=== PATIENT | female | born 1975 | race Hispanic/Latino ===

== ENCOUNTER 2019-11-15 13:16 | Emergency (ER) | payer OTHER ==
[2019-11-15] MEDS ORDERED: ACETAMINOPHEN EXTRA STRENGTH 500 MG TABLET ONE (15:11)
[2019-11-15 15:46] LABS: BASOPHILS % (AUTO) 0.3 % (0.0-5.0); EOSINOPHILS % (AUTO) 2.7 % (0.0-8.0); HEMATOCRIT 41.2 % (36-48); LYMPHOCYTES % (AUTO) 26.1 % (21.0-51.0); MEAN CORPUSCULAR HEMOGLOBIN 29.8 pg (27.0-33.0); MEAN CORPUSCULAR HGB CONC 33.3 g/dL (32.0-36.0); MEAN CORPUSCULAR VOLUME 89.6 fL (79-99); MONOCYTES % (AUTO) 4.8 % (3.0-13.0); NEUTROPHILS % (AUTO) 65.9 % (40.0-77.0); PLATELET COUNT (AUTO) 347 K/uL (130-400); RED CELL DISTRIBUTION WIDTH 13.8 % (11.0-15.5)
[2019-11-15 16:06] LABS: ALBUMIN 3.8 g/dL (3.5-5.0); BILIRUBIN,TOTAL 0.1 mg/dL (0.2-1.0); CREATININE 0.7 mg/dL (0.5-1.5); POTASSIUM 4.4 mmol/L (3.5-5.1); TOTAL PROTEIN, SERUM 7.4 g/dL (6.0-8.3)
[2019-11-15] MEDS ORDERED: METOCLOPRAMIDE 10 MG/2 ML VIAL ONE (16:16)
[2019-11-15] MEDS ORDERED: DiphenhydrAMINE HCL 50 MG/ML VIAL ONE (16:17)
[2019-11-15] MEDS ORDERED: ERGOCALCIFEROL (VITAMIN D2) 50,000 UNIT CAPSULE ONE (16:57)
[2019-11-15] MEDS ORDERED: DIAZEPAM 5 MG/ML 2 ML SYG ONE (17:29)
[2019-11-15] MEDS ORDERED: IOHEXOL-350 75 ML VIAL IV ONE (17:29)
== END 2019-11-15 19:59 | disposition home or self-care (01) ==
LOC: EDH 13:16
DX: R51 Headache (principal); Z20.828 Contact with and (suspected) exposure to other viral communicable diseases; Z72.0 Tobacco use
CPT/HCPCS: 36415; 70450; 70496; 70498; 71045; 80053; 82550; 84484; 85025; 87426; 93005; 96361; 96374; 96375; 99285; J1200; J2765; J3360; Q9967; U0003

== ENCOUNTER 2020-05-17 11:21 | Emergency (ER) | payer OTHER ==
[2020-05-17] MEDS ORDERED: MORPHINE SULFATE 2 MG/ML 1ML SYG ONE (11:56)
[2020-05-17] MEDS ORDERED: KETOROLAC TROMETHAMINE 60 MG/2 ML VIAL ONE (14:50)
== END 2020-05-17 16:29 | disposition home or self-care (01) ==
LOC: EDH 11:21
DX: S86.911A Strain of unspecified muscle(s) and tendon(s) at lower leg level, right leg, initial encounter (principal); Z72.0 Tobacco use; X58.XXXA Exposure to other specified factors, initial encounter; Y93.89 Activity, other specified; Y92.89 Other specified places as the place of occurrence of the external cause; Y99.8 Other external cause status
CPT/HCPCS: 29505; 73562; 76882; 82948; 96372 ×2; 99284; J1885

== ENCOUNTER 2020-08-14 17:17 | Emergency (ER) | payer OTHER ==
[~2020-08-14] VITALS: Ht 175.3 cm; Wt 79.4 kg
[2020-08-14 17:23] VITALS: BP 140/73
[2020-08-14 17:29] VITALS: BP 122/69
[2020-08-14 17:43] LABS: BASOPHILS % (AUTO) 0.4 % (0.0-5.0); EOSINOPHILS % (AUTO) 3.2 % (0.0-8.0); HEMATOCRIT 40.2 % (36-48); MEAN CORPUSCULAR HEMOGLOBIN 29.9 pg (27.0-33.0); MEAN CORPUSCULAR HGB CONC 32.6 g/dL (32.0-36.0); MEAN CORPUSCULAR VOLUME 91.8 fL (79-99); MONOCYTES % (AUTO) 5.6 % (3.0-13.0); NEUTROPHILS % (AUTO) 56.5 % (40.0-77.0); PLATELET COUNT (AUTO) 371 K/uL (130-400); RED BLOOD CELL COUNT(AUTO) 4.38 MIL/uL (4.00-5.50); RED CELL DISTRIBUTION WIDTH 13.2 % (11.0-15.5); WHITE BLOOD COUNT (AUTO) 9.7 K/uL (4.8-10.8)
[2020-08-14 17:52] LABS: CARBON DIOXIDE 29 mmol/L (21-32); CHLORIDE 106 mmol/L (101-111); CREATININE 0.8 mg/dL (0.5-1.5); GLOMERULAR FILTR. RATE CALC 82 mL/min (>60); GLUCOSE,RANDOM 119 mg/dL (70-105); POTASSIUM 3.7 mmol/L (3.5-5.1); SODIUM SERUM 143 mmol/L (136-145); UREA NITROGEN, BLOOD 18 mg/dL (7-18)
[2020-08-14 17:54] LABS: INR 0.95 (0.85-1.15); PROTHROMBIN TIME 10.4 SEC (9.6-11.6)
[2020-08-14 18:02] LABS: ALANINE AMINOTRANSFERASE 31 U/L (12-78); ALBUMIN 3.5 g/dL (3.5-5.0); ASPARTATE AMINOTRANSFERASE 17 U/L (10-37); BILIRUBIN,TOTAL 0.1 mg/dL (0.2-1.0); CREATINE KINASE, TOTAL 69 U/L (21-232); MYOGLOBIN 17 ng/mL (10-92); TOTAL PROTEIN, SERUM 6.9 g/dL (6.0-8.3); TROPONIN I < 0.04 ng/mL (0.00-0.06)
[2020-08-14 18:37] VITALS: BP 128/73
[2020-08-14 20:27] VITALS: BP 129/66
== END 2020-08-14 20:30 | disposition home or self-care (01) ==
LOC: EDH 17:17
DX: R07.9 Chest pain, unspecified (principal); R20.0 Anesthesia of skin; E66.9 Obesity, unspecified
CPT/HCPCS: 36415; 71045; 80053; 82550; 83874; 84484; 85025; 85610; 93005

== ENCOUNTER 2021-02-08 17:07 | Emergency (ER) | payer OTHER ==
[~2021-02-08] VITALS: Ht 175.3 cm; Wt 86.2 kg
[2021-02-08 17:09] VITALS: BP 120/72
== END 2021-02-08 17:25 | disposition left against medical advice (07) ==
LOC: EDH 17:07
DX: R51.9 Headache, unspecified (principal); Z53.21 Procedure and treatment not carried out due to patient leaving prior to being seen by health care provider

== ENCOUNTER 2022-06-27 10:36 | Emergency (ER) | payer OTHER ==
[~2022-06-27] VITALS: Ht 175.3 cm; Wt 87.1 kg
[2022-06-27 10:37] VITALS: BP 125/63
[2022-06-27] MEDS ORDERED: KETOROLAC 60 MG VIAL (30MG/ML) IM ONE (11:00)
[2022-06-27 11:22] LABS: APPEARANCE,URINE CLEAR (CLEAR); BILIRUBIN,URINE NEGATIVE (NEGATIVE); COLOR,URINE LIGHT-YELLOW (YELLOW); GLUCOSE, URINE (UA) NEGATIVE (NEGATIVE); KETONES,URINE NEGATIVE (NEGATIVE); LEUKOCYTE ESTERASE ,URINE NEGATIVE Leu/uL (NEGATIVE); NITRATE,URINE NEGATIVE (NEGATIVE); OCCULT BLOOD,URINE NEGATIVE (NEGATIVE); PH,URINE 5.5 (5.0-8.0); PROTEIN,URINE NEGATIVE (NEGATIVE)
[2022-06-27] MEDS ORDERED: ALBUTEROL 0.083% 2.5 MG/3 ML INH IH ONE (11:30)
[2022-06-27] MEDS ORDERED: IBUP-2071 PO (11:32)
[2022-06-27] MEDS ORDERED: OXYC-38 PO (11:32)
[2022-06-27] MEDS ORDERED: CYCL10TA16 PO (11:32)
[2022-06-27] MEDS ORDERED: ALBUHFA IH (11:33)
[2022-06-27] MEDS ORDERED: OXYCODONE/ACETAMIN 5/325MG TAB PO ONE (12:00)
[2022-06-27 12:18] LABS: BACTERIA,URINE FEW /HPF (None Seen); MUCUS,URINE RARE LPF (None Seen); RBC,URINE 0-1 /HPF (0-1); SQUAMOUS EPITHELIAL CELL,UR RARE /HPF (0-2); WBC,URINE 0-1 /HPF (0-1)
== END 2022-06-27 12:03 | disposition home or self-care (01) ==
LOC: EDH 10:36
DX: J98.01 Acute bronchospasm (principal); M54.31 Sciatica, right side; M54.12 Radiculopathy, cervical region; Z98.890 Other specified postprocedural states
CPT/HCPCS: 99284; 81001; 96372; 94640; J1885

== ENCOUNTER 2022-09-18 20:44 | Emergency (ER) | payer OTHER ==
[~2022-09-18] VITALS: Ht 175.3 cm; Wt 866.4 kg
[~2022-09-18 20:44] MED LIST: ALBUHFA IH; CYCL10TA16 PO; IBUP-2071 PO; OXYC-38 PO
[2022-09-18 21:12] LABS: BASOPHILS % (AUTO) 0.6 % (0.0-5.0); EOSINOPHILS % (AUTO) 2.8 % (0.0-8.0); HEMATOCRIT 34.5 % (36-48); LYMPHOCYTES % (AUTO) 39.2 % (21.0-51.0); MEAN CORPUSCULAR HEMOGLOBIN 30.8 pg (27.0-33.0); MEAN CORPUSCULAR HGB CONC 33.9 g/dL (32.0-36.0); MEAN CORPUSCULAR VOLUME 90.8 fL (79-99); MONOCYTES % (AUTO) 4.8 % (3.0-13.0); NEUTROPHILS % (AUTO) 52.3 % (40.0-77.0); PLATELET COUNT (AUTO) 303 K/uL (130-400); RED CELL DISTRIBUTION WIDTH 13.6 % (11.0-15.5); WHITE BLOOD COUNT (AUTO) 9.9 K/uL (4.8-10.8)
[2022-09-18 21:25] LABS: CREATININE 0.8 mg/dL (0.5-1.5); POTASSIUM 3.6 mmol/L (3.5-5.1)
[2022-09-18 21:29] LABS: ALBUMIN 3.3 g/dL (3.5-5.0); TOTAL PROTEIN, SERUM 6.2 g/dL (6.0-8.3)
[2022-09-18 21:30] LABS: INR 0.93 (0.85-1.15); PROTHROMBIN TIME 10.4 SEC (9.6-11.6)
[2022-09-18 21:31] LABS: PARTIAL THROMBOPLASTIN TIME 25.9 SEC (26.3-35.5)
[2022-09-18] MEDS ORDERED: KETOROLAC 30MG VIAL (30MG/ML) IM ONE (22:00)
[2022-09-18] MEDS ORDERED: DIPH,PERTUSS(ACELL),TET VAC/PF 0.5 ML VIAL IM ONE (22:00)
[2022-09-18] MEDS ORDERED: TETANUS/DIPHTHERIA TOXOID [ADULT] 0.5 ML VIAL IM ONE ×2 (22:26→22:30)
[2022-09-19] MEDS ORDERED: IBUP-1493 PO (00:30)
[2022-09-19] MEDS ORDERED: CYCL-309 PO (00:30)
[2022-09-19] MEDS ORDERED: MUPI15C TP (00:31)
[2022-09-19 00:33] VITALS: BP 118/54
== END 2022-09-19 00:58 | disposition home or self-care (01) ==
LOC: EDH 20:44
DX: S20.212A Contusion of left front wall of thorax, initial encounter (principal); S80.812A Abrasion, left lower leg, initial encounter; M54.31 Sciatica, right side; Z79.899 Other long term (current) drug therapy; Z98.890 Other specified postprocedural states; W01.0XXA Fall on same level from slipping, tripping and stumbling without subsequent striking against object, initial encounter; Y93.89 Activity, other specified; Y92.89 Other specified places as the place of occurrence of the external cause; Y99.8 Other external cause status
CPT/HCPCS: 99285; 71045; 84484; 80053; 85025; 85610; 85730; 36415; 90714; 96372; 90471; 93005; J1885

== ENCOUNTER 2023-07-31 18:48 | Emergency (ER) | payer OTHER ==
[~2023-07-31] VITALS: Ht 175.3 cm; Wt 79.4 kg
[~2023-07-31 18:48] MED LIST changes: +CYCL-309 PO; -CYCL10TA16 PO; +IBUP-1493 PO; -IBUP-2071 PO; +MUPI15C TP; -OXYC-38 PO
[2023-07-31] MEDS ORDERED: KETO10TA2 PO (20:56)
[2023-07-31 21:12] VITALS: BP 140/74; PULSE 74; RESP 14; O2SAT 98
[2023-07-31] MEDS: KETOROLAC 10 MG TABLET PO SCH (21:12)
== END 2023-07-31 21:23 | disposition home or self-care (01) ==
LOC: EDH 18:48
DX: S86.811A Strain of other muscle(s) and tendon(s) at lower leg level, right leg, initial encounter (principal); Z79.899 Other long term (current) drug therapy; Z98.890 Other specified postprocedural states; X50.1XXA Overexertion from prolonged static or awkward postures, initial encounter; Y93.01 Activity, walking, marching and hiking; Y92.89 Other specified places as the place of occurrence of the external cause; Y99.8 Other external cause status
CPT/HCPCS: 29505; 73564

== ENCOUNTER 2024-04-09 13:41 | Emergency (ER) | payer BC ==
[~2024-04-09] VITALS: Ht 170.2 cm; Wt 89.8 kg
[~2024-04-09 13:41] MED LIST changes: +KETO10TA2 PO
[2024-04-09 14:26] LABS: RAPID GROUP A STREP negative (NEGATIVE)
--- NOTE | 2024-04-09 14:26 | ERN ---
ED Note History of Present Illness Stated Complaint: FACE BREAKING OUT,MULTIPLE COMPLAINTS Chief Complaint: Cough Time Seen by MD: 13:45 Dictation: A 48-year-old female, who is an active smoker, presented to the emergency department today with a primary complaint of a skin breakouts over the face that began yesterday. She has recently commenced employment at a [employer], where several staff members have fallen ill with COVID-19, raising her concerns. Additionally, she reports experiencing body aches, headaches, a sore throat, cough without phlegm and intermittent chest congestion for approximately one month. The patient also describes reproducible chest pain, predominantly on the left side, radiating to her back, but denies experiencing nausea, vomiting, or dizziness. This morning, she noted a fever and took Tylenol for symptomatic relief. She has a history of gastroesophageal reflux disease (GERD) but has not been adhering to any medication regimen. The patient is experiencing some stress, as her father from a massive heart attack and her brothers due to cancer. She does not have a primary care provider outside of the clinic. Allergies: Coded Allergies: No Known Drug Allergies (Unverified Allergy, Unknown, 05/17/20) Home Meds Active Scripts Ketorolac Tromethamine (Ketorolac Tromethamine) 10 Mg Tablet, 10 MG PO BID for 5 Days, #10 TAB Prov:SEMAJ LONG 07/31/23 Mupirocin Calcium (Bactroban 2% Cream) 1 Appl/Gm Crm, 1 APPL TP TID, #60 APPL Prov:MICHELE WALKER MD 09/19/22 Ibuprofen (Motrin/Advil) 800 Mg Tab, 800 MG PO TID PRN for PAIN, #30 TAB Prov:MICHELE WALKER MD 09/19/22 Cyclobenzaprine HCl (Cyclobenzaprine HCl) 10 Mg Tablet, 10 MG PO TIDP PRN for PAIN, #30 TAB Prov:MICHELE WALKER MD 09/19/22 Albuterol Sulfate (Ventolin Hfa/Proventil Hfa/Proair Hfa) 90 Mcg/Puff Puff, 2 PUFF IH Q4H for Shortness of Breath, #1 INHALER 0 Refills Prov:DONY SIMONS MD 06/27/22 Past Medical History Past Medical History: Sciatica Additional Past Medical Hx: 4 chronic back pain with sciatica Surgical History: BTL Surgical History Other: TUBAL LIGATION Family History: Negative Social History: Smokers, ETOH, Negative, Other Review of System Dictation REVIEW OF SYSTEMS CONSTITUTIONAL: Complaints of fever, headaches, body aches Denies chills, or night sweats. No unintentional weight loss reported. NEUROLOGICAL: Denies headache, amaurosis fugax, motor weakness, sensory deficit, vertigo/spinning sensation, gait abnormalities, or tremors. ENT: No hearing loss, otalgia, otorrhea, rhinitis, rhinorrhea, hoarseness, or sore throat. CARDIOVASCULAR: Complaints of left-sided chest pain radiating to the back,Sharp shooting type. Denies any exertional angina, dyspnea on exertion, orthopnea, paroxysmal nocturnal dyspnea, palpitations, life-threatening arrhythmias, claudi cation. PULMONARY: Denies any shortness of breath, cough, phlegm/sputum, hemoptysis, pleuritic chest pain. SLEEP: Denies morning headaches, daytime somnolence or napping. Denies difficulty falling asleep, staying asleep, waking from sleep. Denies knowledge of snoring. GASTROINTESTINAL: Denies any type of dysphagia to either liquids or solids. Denies nausea, vomiting, pyrosis, early satiety, abdominal pain, diarrhea, constipation, or changes in stool consistency or caliber. Denies coffee-ground emesis, hematemesis, hematochezia, or melanotic stools. GENITOURINARY: Denies frequency, urgency, nocturia, hematuria or incontinence (Storage/Irritative symptoms.) Low urinary stream, straining to void, urinary intermittency or hesitancy, splitting of the voiding stream, terminal dribbling. ENDOCRINOLOGIC: Denies polyuria, polydipsia, polyphagia or heat/cold intolerances. HEMATOLOGIC: Denies thrombophilia/previous clots, or coagulopathy/bleeding disorders. ONCOLOGIC: Denies personal history of malignancy. DERMATOLOGIC: Complaints of skin breakouts over the face, Denies rashes or pru ritus. PSYCHIATRIC: Denies any suicidal or homicidal ideation. Denies hallucinations. Initial Vital Sign VS Vital Signs Date Time Temp Pulse Resp B/P (MAP) Pulse Ox O2 Delivery O2 Flow Rate FiO2 04/09/24 13:58 98.2 75 16 134/74 98 Room Air 0 04/09/24 18:02 21 Physical Exam Dictation PHYSICAL EXAM GENERAL APPEARANCE: The patient is awake, alert, and oriented, in no acute cardiopulmonary distress. NEUROLOGICAL: Cranial nerves II-XII grossly intact. Motor is 5/5 in bilateral upper and lower extremities proximal to distal. No sensory deficits. HEENT: Face is symmetric. Pupils are equal and reactive. Extraocular movements are intact. NECK: Supple. No JVD. No thyromegaly. No submental, submandibular, pre- /postauricular, occipital or supraclavicular lymphadenopathy. CHEST: Normal chest expansion. No Telemetry. LUNGS: Absence of any rales, rhonchi or any wheezing. CARDIOVASCULAR: Regular. S1 and S2 normal. No appreciable rubs, murmurs or gallops. ABDOMEN: Soft, nontender, and nondistended. There is no rebound, voluntary guarding, or rigidity. : Deferred. No Hill. EXTREMITIES: Non-edematous and not cyanotic. No clubbing. Good capillary refill. SKIN: Few skin breakouts were noted over the face. Results (Laboratory/Radiology) Laboratory/Radiology Laboratory Tests Test 04/09/24 14:06 04/09/24 15:11 Influenza Type A Antigen Negative For Type A Influenza Type B Antigen Negative For Type B SARS-CoV-2, RNA, NAAT NEGATIVE SARS CoV-2 Group A Streptococcus Rapid negative (NEGATIVE) White Blood Count 7.2 K/uL (4.8-10.8) Red Blood Count 4.69 MIL/uL (4.00-5.50) Hemoglobin 14.1 g/dL (12.0-16.0) Hematocrit 43.5 % (36-48) Mean Corpuscular Volume 92.8 fL (79-99) Mean Corpuscular Hemoglobin 30.1 pg (27.0-33.0) Mean Corpuscular Hemoglobin Concent 32.4 g/dL (32.0-36.0) Red Cell Distribution Width 13.5 % (11.0-15.5) Platelet Count 328 K/uL (130-400) Mean Platelet Volume 9.0 fL (7.5-10.5) Immature Granulocyte % (Auto) 0.3 % (0-1) Neutrophils (%) (Auto) 60.7 % (40.0-77.0) Lymphocytes (%) (Auto) 28.9 % (21.0-51.0) Monocytes (%) (Auto) 7.2 % (3.0-13.0) Eosinophils (%) (Auto) 2.5 % (0.0-8.0) Basophils (%) (Auto) 0.4 % (0.0-5.0) Neutrophils # (Auto) 4.4 K/uL (1.8-7.7) Lymphocytes # (Auto) 2.1 K/uL (1.0-4.8) Monocytes # (Auto) 0.5 K/uL (0.1-1.0) Eosinophils # (Auto) 0.18 K/uL (0.00-0.70) Basophils # (Auto) 0.03 K/uL (0.00-0.20) Absolute Immature Granulocyte (auto 0.02 K/uL (0-1) Nucleated Red Blood Cells 0.0 % (0.0-0.19) Sodium Level 142 mmol/L (136-145) Potassium Level 4.4 mmol/L (3.5-5.1) Chloride Level 106 mmol/L (101-111) Carbon Dioxide Level 31 mmol/L (21-32) Blood Urea Nitrogen 11 mg/dL (7-18) Creatinine 0.6 mg/dL (0.5-1.0) Glomerular Filtration Rate Calc 110 mL/min (>90) Random Glucose 91 mg/dL (70-105) Total Calcium 8.7 mg/dL (8.5-10.1) Troponin I High Sensitivity 5 ng/L (4-50) Labs Reviewed?: Yes EKG Comment: Sinus rhythm, normal P axis, V rate 50-99 W[place] 153 QT 421 QTcB 425 X-RAY Comment: [place] [id number] IMAGING REPORT Signed PATIENT: CAILIN MENCHACA MR#: [id number] : 1975 SEX: F AGE: 48 LOCATION: [facility] ORDER 44 STATUS: REG ER REPORT#: [id number] SERVICE 43 REASON: cp ORDERING PHYSICIAN: HUI TADEO MD PROCEDURE: CXR1VW - CHEST 1VW Exam Type: CHEST 1VW Clinical Information: cp Comparison: None Findings: The lungs are clear of infiltrates. The heart is normal in size. The bony and soft tissue structures of the chest are unremarkable. Impression: Clear lungs. DICTATED BY: MARGARITA MONTOYA MD DATE: 04/09/24 1517 ELECTRONICALLY SIGNED BY: MARGARITA MONTOYA MD DATE: 04/09/24 1520 ED Course ED Course Orders Procedure Category Date Status Time Covid Rna Naat LAB 04/09/24 Complete 14:02 Influenza Type A & B, LAB 04/09/24 Complete Rapid 14:02 Rapid (Group A Strep) LAB 04/09/24 Complete 14:02 12 Lead Ekg Tracing- EKG 04/09/24 Resulted Technical 14:44 Blood Cult JAKUB 04/09/24 In Process 14:44 Cbc With Differential LAB 04/09/24 Complete 14:44 Troponin I High LAB 04/09/24 Complete Sensitivity 14:44 Chest 1vw RAD 04/09/24 Resulted 14:44 Basic Metabolic Panel LAB 04/09/24 Complete 14:46 Vital Signs Date Time Temp Pulse Resp B/P (MAP) Pulse Ox O2 Delivery O2 Flow Rate FiO2 04/09/24 18:02 98.2 88 16 132/88 99 Room Air* 0 21 04/09/24 13:58 98.2 75 16 134/74 98 Room Air 0 14:20:The patient was assessed in the emergency department triage room 2. She appears to be in a comfortable state, although she expresses anxiety regarding the skin lesions on her face. She presents as pleasant and does not exhibit any signs of acute cardiopulmonary distress. Her hemodynamic status is stable. She reports reproducible chest pain on the left side. COVID, flu, strep tests have been negative. At this stage, we will exclude cardiac causes for the chest pain by performing an EKG, a cardiac panel, and basic laboratory tests. Further management will be determined based on the findings. Continuous monitoring of the patient will be conducted. Plan was discussed with the patient. 16:38: The labs are resulted, CBC, BMP are nonsignificant and troponin are negative. The chest pain could be secondary to gastroesophageal reflux disease or musculoskeletal origin and this was explained to the patient. The patient may have underlying Illness anxiety disorder due to positive family history of multiple cancers. At this point, we do not think that the patient requires any emergency treatment or inpatient hospitalization. She appears much relieved after knowing that the investigations are negative. She can be followed up as an outpatient for further evaluation of the symptoms. The decision was made to discharge the patient home. HEART Score Response (Comments) Value History: Low suspicion (0) 0 EKG: Normal 0 Age: 45-65yrs (+1) 1 Risk Factors: No known risk factors (0) 0 Initial Troponin: Normal limit (0) 0 HEART Score Risk: Low Risk for MACE (1-3) Total 1 CHADS-VASc Score Response (Comments) Value Sex: Female (+1) 1 CHF History: No (0) 0 Hypertension Hx: No (0) 0 Stroke/TIA/Thromboembolism Hx: No (0) 0 Vascular Disease Hx(prior [place], CAD, PAD, etc.): No (0) 0 Diabetes Hx: No (0) 0 Thromboembolism Risk: Low Risk (0-1) Antithrombotic Therapy Recommendations: No Therapy Needed (0-1) Total 1 Medical Decision Making [facility] Differential diagnosis: Gastroesophageal reflux disease, musculoskeletal pain, Acute viral syndrome, Illness anxiety disorder Rationale: Tests considered and ordered secondary to shared decision making include: Previous outside records reviewed: Old ER visits. Risk of complication and/or morbidity or mortality of patient management: None Medications-Per medication reconciliation Need for hospitalization: Patient does not meet criteria for hospitalization. Need for emergency major/minor surgery: No There are no social concerns with this patient. Prescription drug management Prescriptions will include symptomatic care Patient's prior external medical records from other ER visits were reviewed by me as indicated. Prior testing and results from previous visits were reviewed. Prior tests were taken into account with medical decision making and resource utilization, independent historian/historians were used to obtain complete [facility] history. I independently interpreted the test that were performed, results were reviewed by me and considered findings on radiology if ordered. DX & DISP Disposition: Discharge Departure Impression: Primary Impression: GERD (gastroesophageal reflux disease) Additional Impressions: Musculoskeletal pain, Illness anxiety disorder, Acute viral syndrome Critical Time: 30 minutes Condition: Stable Additional Instructions: Take over the counter antacids to help with GERD symptoms when needed Seek professional help: Don't hesitate to reach out to a doctor or therapist if your health anxieties are significantly impacting your life. Find a healthcare provider you feel comfortable discussing your concerns with and work to establish a regular schedule for check-ups. Cognitive Behavioral Therapy (CBT): This form of therapy is considered the most effective treatment for illness anxiety disorder, helping you identify and challenge negative thought patterns related to your health. Stress management techniques: Learn relaxation methods like deep breathing, progressive muscle relaxation, or mindfulness practices to manage anxiety. Physical activity:Regular exercise can significantly improve mood and reduce anxiety levels. Maintain a healthy lifestyle: Ensure adequate sleep, a balanced diet, and limit alcohol and caffeine intake Get plenty of rest, stay hydrated by drinking fluids regularly, take [id number] pain relievers like acetaminophen or ibuprofen as needed. Referrals: FABBY MUNOZ MD (PCP) I performed the substantive portion of the visit. I have reviewed and personally made and approve the management plan that is documented in the notes by myself or the resident physician. I acknowledge full responsibility for the patient's management plan. I have examined patient, & reviewed all documents, & agreed W/ the Diagnosis, and Plan ATTESTATION BY PHYSICIAN I have seen and examined the patient. I reviewed the documentation, medical decision making, and treatment plan as noted by the resident provider above. I agree with the findings and plan of care. IVETTE GARLAND MD Apr 09, 2024 14:25 HUI TADEO MD Apr 09, 2024 18:34
[2024-04-09 14:34] LABS: SARS-CoV-2, RNA, NAAT NEGATIVE SARS CoV-2 (NEGATIVE)
[2024-04-09 14:39] LABS: INFLUENZA TYPE A Negative For Type A (NEGATIVE); INFLUENZA TYPE B Negative For Type B (NEGATIVE)
--- NOTE | 2024-04-09 15:20 | HMCIMG ---
Exam Type: CHEST 1VW Clinical Information: cp Comparison: None Findings: The lungs are clear of infiltrates. The heart is normal in size. The bony and soft tissue structures of the chest are unremarkable. Impression: Clear lungs.
--- NOTE | 2024-04-09 15:23 | EKG ---
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
[2024-04-09 15:50] LABS: BASOPHILS # (AUTO) 0.03 K/uL (0.00-0.20); BASOPHILS % (AUTO) 0.4 % (0.0-5.0); EOSINOPHILS # (AUTO) 0.18 K/uL (0.00-0.70); EOSINOPHILS % (AUTO) 2.5 % (0.0-8.0); HEMATOCRIT 43.5 % (36-48); IMMATURE GRANULOCYTE ABSOLUTE 0.02 K/uL (0-1); LYMPHOCYTES # (AUTO) 2.1 K/uL (1.0-4.8); LYMPHOCYTES % (AUTO) 28.9 % (21.0-51.0); MEAN CORPUSCULAR HEMOGLOBIN 30.1 pg (27.0-33.0); MEAN CORPUSCULAR HGB CONC 32.4 g/dL (32.0-36.0); MEAN CORPUSCULAR VOLUME 92.8 fL (79-99); MONOCYTES # (AUTO) 0.5 K/uL (0.1-1.0); MONOCYTES % (AUTO) 7.2 % (3.0-13.0); NEUTROPHILS # (AUTO) 4.4 K/uL (1.8-7.7); NEUTROPHILS % (AUTO) 60.7 % (40.0-77.0); PLATELET COUNT (AUTO) 328 K/uL (130-400); RED BLOOD CELL COUNT(AUTO) 4.69 MIL/uL (4.00-5.50); RED CELL DISTRIBUTION WIDTH 13.5 % (11.0-15.5); WHITE BLOOD COUNT (AUTO) 7.2 K/uL (4.8-10.8)
[2024-04-09 16:01] LABS: CREATININE 0.6 mg/dL (0.5-1.0); POTASSIUM 4.4 mmol/L (3.5-5.1)
[2024-04-09 18:02] VITALS: BP 132/88; PULSE 88; RESP 16; TEMP 98.2; O2SAT 99
== END 2024-04-09 19:36 | disposition home or self-care (01) ==
LOC: EDH 13:41
DX: K21.9 Gastro-esophageal reflux disease without esophagitis (principal); F41.9 Anxiety disorder, unspecified; B34.9 Viral infection, unspecified; R07.89 Other chest pain; G89.29 Other chronic pain; F17.200 Nicotine dependence, unspecified, uncomplicated; Z20.822 Contact with and (suspected) exposure to COVID-19; Z98.51 Tubal ligation status
CPT/HCPCS: 36415; 71045; 80048; 84484; 85025; 87040; 87635; 87804; 87880; 93005; 99284